=== PATIENT | female | born 1990 | race Caucasian/White ===

== ENCOUNTER 2017-02-01 23:20 | Inpatient (IN) | payer OTHER ==
[2017-02-02] MEDS ORDERED: LIDOCAINE 1% (PRES FREE) 30 ML VIAL ONE (00:17)
[2017-02-02] MEDS ORDERED: MINERAL OIL 25 ML BOT ONE (00:17)
[2017-02-02] MEDS ORDERED: IV START KIT ONE (00:17)
[2017-02-02] MEDS ORDERED: LIDOCAINE Viscous 2% 15 ML UDCUP ONE (00:17)
[2017-02-02] MEDS ORDERED: OXYTOCIN 10 UNITS/ML VIAL ONE (00:17)
[2017-02-02] MEDS ORDERED: PUMP TUBING ONE (00:17)
[2017-02-02] MEDS ORDERED: OXYTOCIN IN LR 500 ML IV ONE ×3 (00:18→07:02)
--- NOTE | 2017-02-02 00:53 | PCMAN ---
OB Admission Note - History : 3 Term: 2 : 0 Abortions (S&E): 0 Livin EDC:: 02/07/17 (by LMP) Gestational Age (weeks): 39 Days (#/7): 1 Admit Cervical Dilation:: 6 Admit Cervical Effacement (%):: 70 Admit Station:: -1 Admit Presentaton:: cephalic Membrane Status: Intact Labor Onset (Date): 02/01/17 Labor Onset (Time): 23:45 Contractions: Yes Contraction Frequency:: q 5min, moderate 45-60sec Heart Rate:: 125 (moderate variability/accles present/decels absent) Status:: Cat. I, appropriate for IA until epidural EFW:: 8.5lbs Summary of Course:: Onset to care at 13w x 12 visits. Pre-preg wt 215lbs, BMI 35.3, TWG 39lbs, spontaneous labor, gbs neg. complicated by obesity, two elevated BPs with normal PIH labs on 01/28/17. She desires epidural for pain management. - Labs Blood Type: A (+) positive Hct/Hgb:: 12.4/37.1 Rubella Status: Immune GBS Status: Negative Other Labs:: Normal PIH labs on 01/28/17 - Review of Systems ROS neg - Physical Exam General: Afebrile Psych/Mental Status: Mood/Affect Appropriate, Judgment/Insight Intact, Bonding Well Neurological: Grossly Intact, Alert, Oriented x 4, Normal Gait, Normal Speech HEENT: Atraumatic Lungs: Clear to Auscultation Bilaterally, Normal Air Movement Cardiovascular: Regular Rate and Rhythm Genitourinary: Normal Female Genitalia Extremities: Full ROM Skin: Normal Color, Warm, Dry, Intact - Problems (1) Spontaneous onset of labor Status: AcuteAssessment/Plan: A: with IUP at 39w1d Spontaneous Active Labor Membranes Intact, GBS neg FHT: Cat. I, appropriate for IA prior to epidural P: Admit to FBC, recommended up right positions until epidural placement Epidural ordered. Anticipate .
[2017-02-02 01:04] VITALS: BMI 39.5
[2017-02-02] MEDS: LACTATED RINGERS 1,000 ML IV PRN ×3 (01:15→02:14)
[2017-02-02] MEDS ORDERED: FENTANYL/ROPIVACAINE EPIDURAL 250 ML EP ONE (01:22)
[2017-02-02] MEDS ORDERED: EPIDURAL PUMP SET ONE (01:23)
[2017-02-02 01:24] LABS: HEMATOCRIT 35.2 % (37.0-47.0); HEMOGLOBIN 11.9 gm/l (12.0-16.0); MEAN CORPUSCULAR HEMOGLOBIN 28.4 pg (27.0-31.0); MEAN CORPUSCULAR HGB CONC 33.8 g/dl (33.0-37.0); RED CELL DISTRIBUTION WIDTH 13.7 % (11.5-14.5)
[2017-02-02] MEDS ORDERED: LACTATED RINGERS 500 ML IV PRN (02:40)
[2017-02-02] MEDS ORDERED: METOCLOPRAMIDE HCL 5 MG/ML 2ML VIAL IV PRN (02:40)
[2017-02-02] MEDS ORDERED: FENTANYL/ROPIVACAINE EPIDURAL 250 ML EP SCH (02:40)
[2017-02-02] MEDS ORDERED: EPHEDRINE SULFATE 50 MG/ML 1ML VIAL IV PRN (02:40)
[2017-02-02] MEDS ORDERED: NALOXONE HCL 0.4 MG/ML VIAL IV PRN (02:40)
[2017-02-02] MEDS ORDERED: DIPHENHYDRAMINE HCL 50 MG/1 ML VIAL IV PRN (02:40)
[2017-02-02] MEDS ORDERED: SODIUM CHLORIDE 0.9% 500 ML IV PRN (02:40)
[2017-02-02] MEDS ORDERED: ONDANSETRON 4 MG/2ML 2 ML VIAL IV PRN (02:40)
[2017-02-02] MEDS ORDERED: LACTATED RINGERS 1,000 ML IV SCH (02:40)
[2017-02-02] MEDS ORDERED: NALBUPHINE HCL 20 MG/ML AMP IV PRN (02:40)
[2017-02-02] MEDS ORDERED: EPIDURAL PROCEDURE TRAY ONE (02:44)
[2017-02-02] MEDS ORDERED: ROPIVACAINE 0.5% 30 ML VIAL ONE (02:44)
[2017-02-02 03:34] LABS: ALB/GLOB RATIO 1.1 (>1.0); ALBUMIN 3.6 gm/dL (3.5-5.7); CALCIUM 9.5 mg/dL (8.6-10.3)
--- NOTE | 2017-02-02 05:03 | PDOC36 ---
Provider Note Subject: labor progress note - arom Note: S: Uma is now very comfortable with epidural. States she would like AROM augmentation and would be comfortable with turning down her epidural. Denies headache, vision changes, RUQ pain. O: VE: 7/100/-1, mid-position, BBOW CTX: q 1-4min, lasting 40-90sec, moderate TOCO: 130/moderate/accels +/decels absent VS: BP: 124/67 T:36.4C P: 114 PIH labs nml (labs done at saline lock placement d/t difficult stick and elevated BP x 1 on admit) A: with IUP at 39w1d AROM for light mec, gbs neg, afebrile Normotensive, PIH labs nml on admit FHT Cat I P: AROM for light mec Encouraged rest and passive movement to assist with dilation and dissent. Anticipate .
[2017-02-02] MEDS ORDERED: LACTATED RINGERS 1,000 ML IV PRN (07:02)
[2017-02-02] MEDS ORDERED: LANOLIN 50 APPLIC/7G TUBE TP PRN (07:02)
[2017-02-02] MEDS ORDERED: HYDROCODONE/ACETAMINOPHEN 5/325MG TABLET PO PRN (07:02)
[2017-02-02] MEDS ORDERED: IBUPROFEN 800 MG TABLET PO PRN (07:02)
[2017-02-02] MEDS ORDERED: DOCUSATE SODIUM 100 MG CAPSULE PO PRN (07:02)
[2017-02-02] MEDS ORDERED: CALCIUM CARBONATE 500 MG TAB.CHEW PO PRN (07:02)
[2017-02-02] MEDS ORDERED: MAGNESIUM HYDROXIDE 30 ML UDCUP PO PRN (07:02)
[2017-02-02] MEDS ORDERED: BENZOCAINE/MENTHOL 60 APPLIC/BOT TP PRN (07:02)
--- NOTE | 2017-02-02 08:09 | PCMDEL ---
Delivery Note - Labor 1st stage (hr/min):: 6h22m 2nd stage (hr/min):: 0h22m 3rd stage (hr/min):: 0h5m Total (hr/min):: 6h49m Pushed (hr/min):: 0h22m - Delivery Delivery (Date): 02/02/17 Delivery (Time): 06:14 Gender: Male Weight: 8 lb 13 oz Presentation: Cephalic Position: OA Umbilical Cord: 3 Vessel Delayed Cord Clamping:: > 3 min 1 Minute Total: 7 5 Minute Total: 9 Placenta:: spontaneous, crenshaw, intact following trailing membranes, 3vc EBL:: 300ml Perineum:: intact Suture:: none Anesthesia/Meds:: epidural Length ROM:: 1h52m Comments:: Following spontaneous onset of contractions, made steady progress with AROM augmentation (light mec) after receiving effective epidural per plan. Pushed effectively to achieve over intact perineum of vigorous male . OA to LYNETTE with loose nuchal, somersaulted at delivery for reduction of cord. AMTSL with IV pitocin initiated. Cord clamped at 45sec d/t minimal crying and taken to warmer briefly for initial supportive resuscitation efforts. Apgars 7/9. Infant then returned to mom for bonding and drying and . Spontaneous delivery of intact placenta, crenshaw, with trailing membranes teased out with ring forceps. Fundus firm midline and at U. Baby to breast in first 30min with effective latch. Hemostatis achieved, EBL 300ml, mom and baby stable.
[2017-02-02] MEDS ORDERED: IBUPROFEN 800 MG TABLET PO SCH (15:30)
[2017-02-02] MEDS: ACETAMINOPHEN 325 MG TABLET PO PRN ×2 (15:33→20:15)
[2017-02-02 20:14] VITALS: BP 129/69
--- NOTE | 2017-02-02 20:20 | PDOC39B ---
Hospital Course: ADMIT DATE: 02/01/17 DISCHARGE DATE: [] ADMISSION DIAGNOSES: Active labor at term PROCEDURES: HISTORY OF PRESENT ILLNESS: 26 year old G3 T2 L2 at 39 weeks 1 days presenting with active labor. Used epidural for pain management. Progressed to complete and of vigorous [id number] male with intact perineum. HOSPITAL COURSE: The patient requests early discharge at 12 hours. At the time of discharge infant is frequently, well and with a good latch. Nipples are not painful. Uma is ambulating, eating, voiding, and passing flatus without difficulty. Pain is controlled and lochia is appropriate. Midwifery 'After the ' handout given to patient. - Physical Exam Vital Signs: Temp Pulse Resp BP Pulse Ox 98.3 F 93 18 118/67 02/02/17 13:43 02/02/17 13:43 02/02/17 13:43 02/02/17 13:43 General: Afebrile Psych/Mental Status: Mood/Affect Appropriate, Judgment/Insight Intact, Bonding Well Neurological: Grossly Intact, Alert, Oriented x 4 HEENT: Atraumatic Lungs: Clear to Auscultation Bilaterally, Normal Air Movement Cardiovascular: Regular Rate and Rhythm, Normal S1, Normal S2 Breast: Soft, Skin intact, Nipples Intact Fundus: Firm, Midline, Below Umbilicus Abdomen: Normal Bowel Sounds Genitourinary: Normal Female Genitalia Lochia: Light Rectal Exam: Deferred Extremities: Full ROM - Discharge Diagnosis (1) care and examination immediately after delivery Status: Acute - Discharge Plan Condition: Stable Disposition: Home Instruction Forms: Vaginal Discharge Instructions Follow-Up: Kalyani Rausch CNM [Certified Nurse Senior Marketing Analyst] - As scheduled (Saturday February 18, 2017 at 1pm in the [place] Office)
== END 2017-02-02 21:22 | disposition home or self-care (01) | DRG 775 ==
LOC: FBCOUT 23:20 → FBC 23:20 → FBCOUT 23:57 → FBC 23:57
PROVIDERS: ADMIT Advanced Practice Midwife; ATTEND Advanced Practice Midwife
PROC: 10E0XZZ Delivery of Products of Conception, External Approach (ICD-10-PCS; principal; 2017-02-02)
PROC: 10907ZC Drainage of Amniotic Fluid, Therapeutic from Products of Conception, Via Natural or Artificial Opening (ICD-10-PCS; 2017-02-02)
DX: O99.214 Obesity complicating childbirth (principal); E66.9 Obesity, unspecified; Z68.35 Body mass index [BMI] 35.0-35.9, adult; Z3A.39 39 weeks gestation of pregnancy; O77.0 Labor and delivery complicated by meconium in amniotic fluid; O69.81X0 Labor and delivery complicated by cord around neck, without compression, not applicable or unspecified; Z37.0 Single live birth